=== PATIENT | male | born 1930 | race Caucasian/White ===

== ENCOUNTER 2020-04-11 17:55 | Emergency (ER) | payer MEDICARE ==
[~2020-04-11] VITALS: Ht 182.9 cm; Wt 72.6 kg
[2020-04-11] MEDS ORDERED: CETI-243 PO (18:32)
[2020-04-11] MEDS ORDERED: TIOT18CA3 IH (18:32)
[2020-04-11] MEDS ORDERED: GUAI600T53 PO (18:32)
[2020-04-11] MEDS ORDERED: IPRA0.2S48 NEB (18:32)
[2020-04-11] MEDS ORDERED: LEVA0.6320 IH (18:32)
[2020-04-11] MEDS ORDERED: BUDE10.2 INH (18:32)
[2020-04-11] MEDS ORDERED: MONT10TA22 PO (18:32)
[2020-04-11] MEDS ORDERED: VERAMIST (18:32)
[2020-04-11] MEDS ORDERED: FLUT9.9S NS (18:32)
[2020-04-11] MEDS ORDERED: CETI-110 PO (18:32)
[2020-04-11] MEDS ORDERED: [UNRECOGNIZED DRUG - OTHER] INH (18:32)
[2020-04-11] MEDS ORDERED: ROFL500T PO (18:32)
[2020-04-11] MEDS ORDERED: CARB-93 PO (18:33)
[2020-04-11] MEDS ORDERED: IV NORMAL SALINE 1000 ML BAG IV ONE (18:45)
[2020-04-11 18:53] LABS: BASOPHILS % (AUTO) 0.2 % (0.0-2.0); HEMATOCRIT 33.5 % (31.2-41.9); LYMPHOCYTES # (AUTO) 0.6 K/uL (20.0-40.0); LYMPHOCYTES % (AUTO) 6.5 % (20.5-51.5); MEAN CORPUSCULAR HEMOGLOBIN 27.9 uug (24.7-32.8); MEAN CORPUSCULAR HGB CONC 33 g/dL (32.3-35.6); MEAN CORPUSCULAR VOLUME 85.4 fL (75.5-95.3); MONOCYTES # (AUTO) 0.7 K/uL (2.0-10.0); MONOCYTES % (AUTO) 8.2 % (0.0-11.0); NEUTROPHILS # (AUTO) 7.6 K/uL (1.8-8.9); NEUTROPHILS % (AUTO) 85.1 % (38.5-71.5); PLATELET COUNT (AUTO) 148 K/uL (179-408); RED BLOOD CELL COUNT(AUTO) 3.92 MIL/uL (3.63-4.92); WHITE BLOOD COUNT (AUTO) 8.9 K/uL (3.8-11.8)
[2020-04-11] MEDS ORDERED: IV NORMAL SALINE 500 ML BAG IV ONE ×2 (19:00→20:30)
[2020-04-11 19:12] LABS: CARBON DIOXIDE 23 mmol/L (21-32); CHLORIDE 100 mmol/L (98-107); CREATININE 1.9 mg/dL (0.6-1.3); GLUCOSE 142 mg/dL (74-106); POTASSIUM 4.8 mmol/L (3.5-5.1); UREA NITROGEN, BLOOD 50 mg/dL (7-18)
[2020-04-11 19:17] LABS: ALANINE AMINOTRANSFERASE 16 U/L (14-59); ALKALINE PHOSPHATASE 123 U/L (50-136); ASPARTATE AMINOTRANSFERASE 45 U/L (15-37); BILIRUBIN,DIRECT 0.2 mg/dL (0.0-0.2); BILIRUBIN,TOTAL 0.4 mg/dL (0.2-1.0); LIPASE 55 U/L (73-393); TOTAL PROTEIN, SERUM 7.1 g/dL (6.4-8.2)
--- NOTE | 2020-04-11 19:25 | NUR ---
Recieved report from LC Sol. Will continue to monitor.
--- NOTE | 2020-04-11 19:30 | NUR ---
Patient BIB [facility] from home for c/o gen. weakness. A/Ox4. Speech is clear, speaks in complete sentences. No acute neuro deficits, negative stroke. Patient is able to move all extremities, and has excellent bilateral UE/LE strength. Respiratory even and unlabored, patient is O2 dependent at home and is on 2L NC continuously. No cardiovascular distress noted, all pulses palpable, denies any cp or discomfort. Denies any n/v/d or any gu distress. Patient will be kept safe, safety precautions implemented. Bed at lowest position, sr upx2, call light within reach. Will continue to monitor.
--- NOTE | 2020-04-11 21:44 | NUR ---
[facility] Awaiting call back for update.
[2020-04-11] MEDS ORDERED: LIDOCAINE 2% (UROJET) 10 ML JELLY MM ONE ×2 (21:45→21:53)
--- NOTE | 2020-04-11 22:30 | NUR ---
Patient in bed at lowest position, sr upx2, call light within reach. Safety precautions implemented. Will continue to monitor patient.
[2020-04-11 22:38] LABS: *BLOOD, URINE 2+ (NEGATIVE); *KETONES,URINE TRACE (NEGATIVE); LEUKOCYTE ESTERASE ,URINE NEGATIVE (NEGATIVE); NITRITE, URINE NEGATIVE (NEGATIVE); PH,URINE 5.5 (5.0-8.0); UGLUCOSE NEGATIVE (NEGATIVE)
[2020-04-11 22:40] LABS: *BILIRUBIN,URIN 1+ (NEGATIVE); *CLARITY,URINE HAZY (CLEAR)
[2020-04-11 22:41] LABS: *COLOR,URINE DARK YELLOW (YELLOW)
[2020-04-11 22:45] LABS: BACTERIA,URINE NONE SEEN /HPF (NONE SEEN); MUCUS,URINE FEW /LPF (0-FEW); RBC,URINE 80-100 /HPF (0-3); SQUAMOUS EPITHELIAL CELL,UR FEW /HPF (NONE SEEN); WBC,URINE 0-3 /HPF (0-3)
--- NOTE | 2020-04-11 23:35 | NUR ---
According to Esvin from [facility] transfer center. Dr. Astudillo will be glad to accept patient for inpatient admission. He will contact nursing stocking and box shop supervisor at [facility] for available beds and will call back with transfer information.
[2020-04-12] MEDS ORDERED: GUAIFENESIN/CODEINE 5 ML LIQUID UDC PO ONE (00:45)
[2020-04-12] MEDS ORDERED: GUAIFENESIN/CODEINE 5 ML LIQUID UDC ONE (01:07)
--- NOTE | 2020-04-12 02:56 | NUR ---
Transport set up with MIHAELA SKAGGS for ALS transport to [facility]. Patient will be going to floor [facility] [id number]. Phone number for report is [phone].
--- NOTE | 2020-04-12 03:21 | NUR ---
[facility] transported to [facility] unit number [id number]. Report given to LC Rodriguez and is aware of patient arrival.
== END 2020-04-12 03:23 | disposition short-term general hospital (02) ==
LOC: EDSEX 17:55 → ER 17:55
DX: R53.1 Weakness (principal); J44.9 Chronic obstructive pulmonary disease, unspecified; Z99.81 Dependence on supplemental oxygen; R94.31 Abnormal electrocardiogram [ECG] [EKG]; Z85.46 Personal history of malignant neoplasm of prostate; Z87.891 Personal history of nicotine dependence; G20 Parkinson's disease; Z85.821 Personal history of Merkel cell carcinoma; Z91.013 Allergy to seafood; N28.9 Disorder of kidney and ureter, unspecified; R06.09 Other forms of dyspnea; Z20.828 Contact with and (suspected) exposure to other viral communicable diseases
CPT/HCPCS: 36415; 51702; 70030-TC; 71045; 83605; 83690; 85025; 93005; A4663; C1758; J7030